=== PATIENT | male | born 2005 | race Caucasian/White ===

== ENCOUNTER 2024-04-18 18:02 | Emergency (ER) | payer SELFPAY ==
[~2024-04-18] VITALS: Ht 167.6 cm; Wt 65.0 kg
[2024-04-18 18:09] VITALS: BP 126/87; PULSE 106; RESP 16; TEMP 98.4; O2SAT 99
== END 2024-04-18 21:07 | disposition home or self-care (01) ==
LOC: ER 18:02
DX: B34.9 Viral infection, unspecified (principal); F19.90 Other psychoactive substance use, unspecified, uncomplicated
CPT/HCPCS: 71045; 99283

== ENCOUNTER 2024-04-18 23:42 | Emergency (ER) | payer SELFPAY ==
[~2024-04-18] VITALS: Ht 172.7 cm; Wt 70.0 kg
[2024-04-18 23:45] VITALS: BP 138/88; PULSE 112; RESP 16; TEMP 98.3; O2SAT 98
== END 2024-04-19 01:32 | disposition home or self-care (01) ==
LOC: ER 23:52
DX: Z59.02 Unsheltered homelessness (principal); R45.1 Restlessness and agitation
CPT/HCPCS: 99283